=== PATIENT | female | born 1940 | race Caucasian/White ===

== ENCOUNTER → 2017-10-09 | Outpatient (CLI) | payer MEDICARE, BC ==
[~2017-10-09] MED LIST: ALLEGRA ALLERG180 MG PO; ALPRAZOLAM 0.50.5 M1 PO; ANTIVERT12.5 MG PO; ASPIR 8181 MG PO; AUGMENTIN 875875 MG PO; BI-EST; CALCIUM PO; CEFTIN500 MG; COREG3.125 MG PO; DICLOXACILLIN250 M1 OR; ESTRIOL VAG; FLAX SEED OIL1000 MG PO; FLAXSEED OIL1000 M2 PO; FOLIC ACID1 MG PO; GINGER250 MG PO; LIDOCAINE 22 %/30 GM TOP; LIDODERM 5%1 PATC1; LISINOPRIL10 MG PO; MAGNESIUM-VIT1 EACH; MAGOX 400400 MG PO; MELATONIN3 M1 PO; ONDANSETRON HCL4 M2 PO; PANTOPRAZOLE SO40 M1 PO; PAPAYA PO; PEPSIN 3,000 DIG1 GM PO; PROAIR HFA8.5 GM INH; PROBIOTIC1 EAC1 PO; PROGESTERONE100 MG; PROGESTERONE100 MG PO; Primrose; SINGULAIR 10 MG10 MG PO; TUMS SMOOTHIES300 MG PO; TYLENOL325 MG PO; UNICOMPLEX M TA1 TA1 PO; VAGIFEM10 MCG VG; VALTREX1000 MG PO; VESICARE 5 MG TA5 MG PO; VESICARE10 M1 PO; VINEGAR; VITAMIN D1000 UNI1 PO; VITAMIN D2000 UNIT PO; VITAMIN K PO; VITAMIN K1 MG/0.5 M; XANAX 0.5 MG0.5 MG PO; ZANTAC 150MG T150 MG PO; [UNRECOGNIZED DRUG - CODE] TOP; [UNRECOGNIZED DRUG - OTHER]; [UNRECOGNIZED DRUG - OTHER] PO; [UNRECOGNIZED DRUG - OTHER] VAG
== END ==
LOC: M.RAD 13:12
DX: M25.562 Pain in left knee (principal); J44.9 Chronic obstructive pulmonary disease, unspecified; I25.10 Atherosclerotic heart disease of native coronary artery without angina pectoris; I10 Essential (primary) hypertension; I73.89 Other specified peripheral vascular diseases; Z98.890 Other specified postprocedural states

== ENCOUNTER → 2018-02-01 | Outpatient (CLI) | payer MEDICARE, BC | LOC: M.RAD 11:28 | DX: Z12.31 Encounter for screening mammogram for malignant neoplasm of breast (principal); J44.9 Chronic obstructive pulmonary disease, unspecified; I10 Essential (primary) hypertension; I73.9 Peripheral vascular disease, unspecified ==

== ENCOUNTER 2018-02-07 12:00 | Emergency (ER) | payer MEDICARE, BC ==
[~2018-02-07] VITALS: Ht 165.1 cm; Wt 50.4 kg
[~2018-02-07 12:00] MED LIST changes: -PEPSIN 3,000 DIG1 GM PO; -PROAIR HFA8.5 GM INH; -SINGULAIR 10 MG10 MG PO; -VINEGAR; -[UNRECOGNIZED DRUG - OTHER]
[2018-02-07] MEDS ORDERED: VINEGAR (12:24)
[2018-02-07] MEDS ORDERED: [UNRECOGNIZED DRUG - OTHER] (12:24)
[2018-02-07] MEDS ORDERED: SINGULAIR 10 MG10 MG PO (12:25)
[2018-02-07] MEDS ORDERED: PEPSIN 3,000 DIG1 GM PO (12:25)
[2018-02-07] MEDS ORDERED: PROAIR HFA8.5 GM INH (12:26)
[2018-02-07 13:21] VITALS: BP 155/62
== END 2018-02-07 13:22 | disposition home or self-care (01) ==
LOC: M.ERS 12:00
DX: L23.9 Allergic contact dermatitis, unspecified cause (principal); T36.7X5A Adverse effect of antifungal antibiotics, systemically used, initial encounter; M79.7 Fibromyalgia; R53.83 Other fatigue; M19.90 Unspecified osteoarthritis, unspecified site; K21.9 Gastro-esophageal reflux disease without esophagitis; J45.909 Unspecified asthma, uncomplicated; Z90.89 Acquired absence of other organs; Z90.49 Acquired absence of other specified parts of digestive tract; Z88.2 Allergy status to sulfonamides; Z88.5 Allergy status to narcotic agent; Z88.8 Allergy status to other drugs, medicaments and biological substances; Y92.89 Other specified places as the place of occurrence of the external cause

== ENCOUNTER → 2018-03-01 | Outpatient (CLI) | payer MEDICARE, BC ==
[~2018-03-01] MED LIST changes: +PEPSIN 3,000 DIG1 GM PO; +PROAIR HFA8.5 GM INH; +SINGULAIR 10 MG10 MG PO; +VINEGAR; +[UNRECOGNIZED DRUG - OTHER]
--- NOTE | 2018-03-01 16:39 | 2DMMODE ---
[place] [address] 2 D/M-MODE ECHOCARDIOGRAM Name: HILTON CRUZ Room: [facility]#: [id number] Admission: 03/01/18 Attend Phys: Zarina ESTRADA Lopez Discharge: Date of : 38 Date of Service: 03/01/18 1639 Report #: [id number] THIS REPORT FOR: //name// APPROVED REPORT Study performed: 03/01/2018 13:15:50 EXAM: Comprehensive 2D, Doppler, and color-flow Echocardiogram Patient Location: Out-Patient Status: routine BSA: 1.54 HR: 65 bpm Other Information Study Quality: Good Indications Dyspnea Fatigue 2D Dimensions LVEF(%): 73.53 (>50%) IVSd: 11.72 (7-11mm) LVOT Diam: 20.71 (18-24mm) LVDd: 37.30 mm PWd: 8.86 (7-11mm) Ascending Ao: 28.54 (22-36mm) LVDs: 21.72 (25-40mm) Aortic Root: 23.15 mm Mcneil's LVEF: 73.53 % Volumes Left Atrial Volume (Systole) LA ESV Index: 21.60 mL/m2 Aortic Valve AoV Peak Lane.: 1.51 m/s AO Peak Gr.: 9.11 mmHg LVOT Max P.61 mmHg AO Mean Gr.: 5.14 mmHg LVOT Mean P.68 mmHg LVOT Max V: 0.95 m/s AO V2 VTI: 36.42 cm LVOT Mean V: 0.59 m/s AWA (VTI): 2.21 cm2 LVOT V1 VTI: 23.88 cm Mitral Valve E/A Ratio: 1.21 [place] [address] 2 D/M-MODE ECHOCARDIOGRAM Name: HILTON CRUZ Room: [facility]#: [id number] Admission: 03/01/18 Attend Phys: Zarina ESTRADA Lopez Discharge: Date of : 38 Date of Service: 03/01/18 1639 Report #: [id number] MV Decel. Time: 232.[address] 0.95 m/s MV PHT: 67.30 ms MVA (PHT): 3.27 cm2 TDI E/Lateral E': 8.64 E/Medial E': 10.[address].: 0.09 m/s Lateral E' Lane.: 0.11 m/s Pulmonary Valve PV Peak Lane.: 0.86 m/s PV Peak Gr.: 2.99 mmHg Tricuspid Valve TR Peak Gr.: 20.97 mmHg RVSP: 25.97 mmHg Left Ventricle The left ventricle is normal size. There is normal LV segmental wall motion. There is normal left ventricular wall thickness. Left ventricular systolic function is normal. The left ventricular ejection fraction is within the normal range. LVEF is 60%. The left ventricular diastolic function is normal. Right Ventricle The right ventricle is normal size. The right ventricular systolic function is normal. Atria The left atrium size is normal. The right atrium size is normal. Aortic Valve Mild aortic valve sclerosis. No aortic regurgitation is present. There is no aortic valvular stenosis. Mitral Valve The mitral valve is normal in structure. Mild mitral regurgitation. No evidence of mitral valve stenosis. Tricuspid Valve The tricuspid valve is normal in structure. Mild tricuspid regurgitation. The RVSP is _26 mmHg. Pulmonic Valve The pulmonary valve is normal in structure. [place] [address] 2 D/M-MODE ECHOCARDIOGRAM Name: HILTON CRUZ Room: [facility]#: [id number] Admission: 03/01/18 Attend Phys: Zarina ESTRADA Lopez Discharge: Date of : 38 Date of Service: 03/01/18 1639 Report #: [id number] Great Vessels The aortic root is normal in size. IVC is normal in size and collapses with >50% inspiration Pericardium There is no pericardial effusion. <Conclusion> The left ventricle is normal size. There is normal left ventricular wall thickness. Left ventricular systolic function is normal. The left ventricular ejection fraction is within the normal range. LVEF is 60%. The left ventricular diastolic function is normal. The right ventricle is normal size. The left atrium size is normal. Mild aortic valve sclerosis. No aortic regurgitation is present. There is no aortic valvular stenosis. The mitral valve is normal in structure. Mild mitral regurgitation. The tricuspid valve is normal in structure. Mild tricuspid regurgitation. The RVSP is _26 mmHg. IVC is normal in size and collapses with >50% inspiration There is no pericardial effusion. There is normal LV segmental wall motion. <ELECTRONICALLY SIGNED> By: Narciso Snider MD, FACC 03/01/18 1639 [id number] Narciso Snider MD, FACC /INF
== END ==
LOC: M.CRD 02-24 08:00
DX: S43.52XA Sprain of left acromioclavicular joint, initial encounter (principal); I08.1 Rheumatic disorders of both mitral and tricuspid valves; M19.012 Primary osteoarthritis, left shoulder; G89.29 Other chronic pain; X58.XXXA Exposure to other specified factors, initial encounter; Y93.89 Activity, other specified; Y92.89 Other specified places as the place of occurrence of the external cause; Y99.8 Other external cause status

== ENCOUNTER → 2018-06-21 | Outpatient (CLI) | payer MEDICARE, BC ==
[2018-06-21 13:18] LABS: CREATININE 0.6 mg/dL (0.6-1.3)
== END ==
LOC: M.LAB 12:30 → M.MRI 13:30
PROVIDERS: Registered Nurse Diabetes Educator
DX: G31.9 Degenerative disease of nervous system, unspecified (principal); R53.1 Weakness; G62.9 Polyneuropathy, unspecified; R13.10 Dysphagia, unspecified; J44.9 Chronic obstructive pulmonary disease, unspecified; M19.90 Unspecified osteoarthritis, unspecified site

== ENCOUNTER → 2018-08-16 | Outpatient (CLI) | payer MEDICARE, BC | LOC: M.ULTRA 08-09 13:00 | DX: I70.8 Atherosclerosis of other arteries (principal); I73.9 Peripheral vascular disease, unspecified ==

== ENCOUNTER → 2019-02-02 | Outpatient (CLI) | payer MEDICARE, BC ==
[2019-02-02 12:39] LABS: ABSOLUTE BASOPHILS 0.1 thou/uL (0.0-0.2); ABSOLUTE EOSINOPHILS 0.1 thou/uL (0.0-0.7); ABSOLUTE LYMPHOCYTES 1.4 thou/uL (0.8-5.3); ABSOLUTE MONOCYTES 0.4 thou/uL (0.0-1.2); ABSOLUTE NEUTROPHILS 4.1 thou/uL (1.6-8.1); EOSINOPHILS 1.2 %; HEMATOCRIT 44.1 % (37.0-47.0); HEMOGLOBIN 14.9 gm/dL (12.0-15.0); LYMPHOCYTES 23.5 %; MCH 33.1 pg (26.0-34.0); MCHC 33.8 g/dL (28.0-37.0); MCV 97.9 fL (80.0-100.0); MONOCYTES 6.4 %; MPV 7.9 fl. (7.2-11.1); NUCLEATED RBCS 0 /100WBC; PLATELET COUNT* 217 thou/uL (150-400); POLYS 67.9 %; RBC 4.51 mil/uL (4.20-5.00); RDW-CV 13.7 % (10.5-14.5)
[2019-02-02 12:47] LABS: ALBUMIN 4.2 g/dL (3.4-5.0); CALCIUM 9.5 mg/dL (8.5-10.1); CREATININE 0.6 mg/dL (0.6-1.3); DIRECT BILIRUBIN 0.1 mg/dL (<0.1-0.3); POTASSIUM 3.9 mmol/L (3.5-5.1); TOTAL BILIRUBIN 0.6 mg/dL (<0.1-1.0); TOTAL PROTEIN 8.1 g/dL (6.4-8.2)
[2019-02-03 13:07] LABS: GLYCOHEMOGLOBIN (HGB A1C) 5.3 % (4.8-5.6)
== END ==
LOC: M.CT 11:30
PROVIDERS: Registered Nurse Diabetes Educator
DX: I67.1 Cerebral aneurysm, nonruptured (principal); G43.111 Migraine with aura, intractable, with status migrainosus; R35.0 Frequency of micturition; E16.2 Hypoglycemia, unspecified; Z88.8 Allergy status to other drugs, medicaments and biological substances; Z88.2 Allergy status to sulfonamides; Z88.5 Allergy status to narcotic agent; Z79.899 Other long term (current) drug therapy

== ENCOUNTER → 2019-03-03 | Outpatient (CLI) | payer MEDICARE, BC | LOC: M.RAD 11:00 → M.ULTRA 11:30 | DX: Z12.31 Encounter for screening mammogram for malignant neoplasm of breast (principal); R22.9 Localized swelling, mass and lump, unspecified; R10.30 Lower abdominal pain, unspecified ==

== ENCOUNTER → 2019-03-04 | Outpatient (CLI) | payer MEDICARE, BC | LOC: M.NUC 02-28 07:30 | DX: K21.9 Gastro-esophageal reflux disease without esophagitis (principal); R13.10 Dysphagia, unspecified ==

== ENCOUNTER → 2019-08-08 | Outpatient (CLI) | payer MEDICARE, BC | LOC: M.ULTRA 08-05 11:30 | DX: D25.9 Leiomyoma of uterus, unspecified (principal); N85.2 Hypertrophy of uterus ==

== ENCOUNTER → 2019-11-25 | Outpatient (CLI) | payer MEDICARE, BC | LOC: M.ULTRA 13:00 | DX: N85.8 Other specified noninflammatory disorders of uterus (principal); R93.5 Abnormal findings on diagnostic imaging of other abdominal regions, including retroperitoneum ==

== ENCOUNTER → 2020-02-01 | Outpatient (CLI) | payer MEDICARE, BC | LOC: M.ULTRA 01-27 13:00 | DX: I73.9 Peripheral vascular disease, unspecified (principal) ==